=== PATIENT | female | born 1990 | race African-American/Black ===

== ENCOUNTER 2023-09-25 16:01 | Emergency (ER) | payer OTHER ==
[~2023-09-25] VITALS: Ht 167.6 cm; Wt 61.2 kg
[2023-09-25] MEDS ORDERED: IBUPROFEN 600 MG TABLET ONE (17:08)
[2023-09-25] MEDS: IBUPROFEN 600 MG TABLET PO ONE (17:27)
[2023-09-25] MEDS ORDERED: NAPR-1009 PO (18:17)
[2023-09-25 18:35] VITALS: BP 133/79; TEMP 97.8; O2SAT 97
== END 2023-09-25 18:35 | disposition home or self-care (01) ==
LOC: ER 16:03
DX: M54.59 Other low back pain (principal); M53.3 Sacrococcygeal disorders, not elsewhere classified; W01.0XXA Fall on same level from slipping, tripping and stumbling without subsequent striking against object, initial encounter; Y93.89 Activity, other specified; Y92.89 Other specified places as the place of occurrence of the external cause; Y99.8 Other external cause status
CPT/HCPCS: 72220-TC